=== PATIENT | male | born 1940 | race Caucasian/White ===

== ENCOUNTER 2020-08-08 16:07 | Emergency (ER) | payer MEDICARE, SELFPAY ==
[2020-08-08] VITALS (18 sets, daily range): BP systolic 106–152; BP diastolic 63–84; PULSE 65–75; RESP 16–18; TEMP 36.7; O2SAT 96–99; BMI 25.0
--- NOTE | 2020-08-08 16:13 | CT_ITS ---
PROCEDURE: CT HEAD/BRAIN WO CON CLINICAL INDICATION: head trauma Head injury with headache/pain, contusion, abrasion or hematoma COMPARISON: No exams were available for comparison TECHNIQUE: Axial images obtained. All CT scans at the facility use one or more dose reduction, viz: automated exposure control, ma/kV adjustment per patient size (including targeted exams where dose is matched to indication, i.e. head), or iterative reconstruction technique. FINDINGS: No midline shift, mass effect, intracranial hemorrhage, hydrocephalus, or extra-axial fluid collection is evident. There is generalized atrophy with hypoattenuation of the periventricular white matter consistent with microangiopathic changes. The calvarium has an unremarkable appearance. Bilateral mastoid effusions are noted. Mild mucosal thickening frontal sinus on the right IMPRESSION: 1. No acute intracranial findings. 2. Mastoid sinus disease Dictated by: Spencer French MD 08/08/2020 16:48 Spencer French MD in [place] 08/08/2020 16:48
--- NOTE | 2020-08-08 16:35 | [facility].EDAMS ---
ED Disposition Clinical Impression: Visual hallucinations Disposition: Home, Self-Care Condition on Discharge: Fair Referrals: Sherly Portillo [Primary Care Provider] - 3 days Time of Disposition: 18:37 - Critical Care Critical Care Time: No Attestation: On 08/08/20, the high probability of a clinically significant, sudden or life threatening deterioration of the following system(s) required my full and direct attention, intervention and personal management. The time I documented below is in addition to time spent performing reported procedures but includes the following listed in this critical care notation. Medical Decision Making - Medical Records Medical records reviewed: Yes: I reviewed the patient's medical records. - Emanuel Inquiry Pt receiving controlled substance: No Vital Signs: 08/08/20 16:07 08/08/20 16:25 08/08/20 16:44 Temperature 98.1 F Temperature Source Oral Pulse Rate 69 70 Pulse Rate [Left Radial] 75 Respiratory Rate 18 16 16 Blood Pressure Blood Pressure [Right Arm] 149/84 H Blood Pressure Mean Blood Pressure Mean [Right Arm] 105 Blood Pressure Source [Right Arm] Automatic Cuff Blood Pressure Position [Right Arm] Sitting 02 Sat by Pulse Oximetry 96 98 98 Oxygen Delivery Method Room Air 08/08/20 16:45 08/08/20 17:00 08/08/20 17:01 Temperature Temperature Source Pulse Rate 70 68 Pulse Rate [Left Radial] Respiratory Rate 17 16 18 Blood Pressure 106/63 L Blood Pressure [Right Arm] Blood Pressure Mean 77 Blood Pressure Mean [Right Arm] Blood Pressure Source [Right Arm] Blood Pressure Position [Right Arm] 02 Sat by Pulse Oximetry 98 99 Oxygen Delivery Method 08/08/20 17:15 08/08/20 17:30 08/08/20 17:45 Temperature Temperature Source Pulse Rate 66 69 68 Pulse Rate [Left Radial] Respiratory Rate 16 18 Blood Pressure 128/81 Blood Pressure [Right Arm] Blood Pressure Mean 90 Blood Pressure Mean [Right Arm] Blood Pressure Source [Right Arm] Blood Pressure Position [Right Arm] 02 Sat by Pulse Oximetry 97 98 98 Oxygen Delivery Method 08/08/20 17:59 08/08/20 18:00 08/08/20 18:01 Temperature Temperature Source Pulse Rate 70 68 Pulse Rate [Left Radial] Respiratory Rate Blood Pressure 141/72 H Blood Pressure [Right Arm] Blood Pressure Mean 93 Blood Pressure Mean [Right Arm] Blood Pressure Source [Right Arm] Blood Pressure Position [Right Arm] 02 Sat by Pulse Oximetry 98 98 Oxygen Delivery Method 08/08/20 18:15 08/08/20 18:30 Temperature Temperature Source Pulse Rate 66 66 Pulse Rate [Left Radial] Respiratory Rate Blood Pressure 145/77 H Blood Pressure [Right Arm] Blood Pressure Mean 99 Blood Pressure Mean [Right Arm] Blood Pressure Source [Right Arm] Blood Pressure Position [Right Arm] 02 Sat by Pulse Oximetry 98 98 Oxygen Delivery Method - Lab Data Lab results reviewed: Yes: I reviewed the patient's lab results. Lab Results 08/08/20 17:00: WBC 7.3, RBC 4.19 L, Hgb 13.0 L, Hct 40.2 L, MCV 96.0 H, MCH 31.0, MCHC 32.3, RDW 14.1, Plt Count 159, MPV 7.9, Neut % (Auto) 78.5, Lymph % (Auto) 13.8, [place] % (Auto) 6.4, Eos % (Auto) 0.8, Baso % (Auto) 0.5, Neut # (Auto) 5.7, Lymph # (Auto) 1.0, [place] # (Auto) 0.5, Eos # (Auto) 0.1, Baso # (Auto) 0.0 08/08/20 17:00: Sodium 142, Potassium 4.2, Chloride 107, Carbon Dioxide 29, Anion Gap 10.2, BUN 21 H, Creatinine 1.30 H, Estimated Creat Clear 46, Estimated GFR 53 L, Est GFR ( Amer) 64, Glucose 116 H, Calcium 9.4, Total Bilirubin 0.6, AST 26, ALT 16, Alkaline Phosphatase 57, Troponin I < 0.01, Total Protein 6.7, Albumin 3.9, Globulin 2.8, Albumin/Globulin Ratio 1.4 08/08/20 17:39: Urine Color Yellow, Urine Appearance Clear, Urine pH 6.5, Ur Specific [place] 1.025, Urine Protein Negative, Urine Glucose (UA) Negative, Urine Ketones Negative, Urine Blood Negative, Urine Nitrate Negative, Urine
[2020-08-08 17:09] LABS: Basophils % 0.5 % (0.1-2.0); Eosinophils # 0.1 K/mm3 (0.0-0.4); Eosinophils % 0.8 % (0.1-12.0); Hematocrit 40.2 % (42.0-52.0); Lymphocytes % 13.8 % (10-50); Mean Corpuscular HGB Conc 32.3 g/dL (31.8-35.4); Mean Platelet Volume 7.9 fl (7.4-10.4); Monocytes # 0.5 K/mm3 (0.1-1.0); Monocytes % 6.4 % (1.7-9.3); Neutrophils # 5.7 K/mm3 (1.8-7.8); Neutrophils % 78.5 % (37.0-80.0); Platelet Count 159 K/mm3 (142-424); Red Blood Count 4.19 M/mm3 (4.60-6.20); Red Cell Distribution Width 14.1 % (11.5-17.5); White Blood Count 7.3 K/mm3 (4.8-10.8)
[2020-08-08 17:15] LABS: Chloride 107 mmol/L (98-107)
[2020-08-08 17:16] LABS: Potassium 4.2 mmoL/L (3.5-5.1); Sodium 142 mmol/L (136-145)
[2020-08-08 17:18] LABS: Alanine Aminotransferase 16 U/L (12-78); Alkaline Phosphatase 57 U/L (38-126); Aspartate Amino Transferase 26 U/L (17-59); Bilirubin,Total 0.6 mg/dl (0.2-1.3); Blood Urea Nitrogen 21 mg/dl (9-20); Creatinine Clearance Estimated 46 mL/min (50-200); Estimated Glomerular Filt Rate 53 ml/min (>60); GFR (African American) 64 ML/MIN (>60)
[2020-08-08 17:19] LABS: Albumin Level 3.9 g/dl (3.5-5.0); Albumin/Globulin Ratio 1.4 (1.1-1.8); Anion Gap 10.2 mEq/L (5-15); Calcium 9.4 mg/dl (8.4-10.2); Carbon Dioxide 29 mmol/L (22.0-30.0); Globulin 2.8 g/dL (1.3-3.2); Glucose 116 mg/dl (74-100); Total Protein,Serum 6.7 g/dl (6.3-8.2)
[2020-08-08 17:31] LABS: Troponin I < 0.01 ng/ml (0.00-0.034)
[2020-08-08 17:43] LABS: Microscopic, Urine URINE MICROSCOPIC (MICROSCOPIC)
[2020-08-08 17:45] LABS: Appearance,Urine CLEAR (Clear); Bilirubin,Urine Negative (Negative); Blood, Urine Negative (Negative); Color,Urine YELLOW (Yellow); Glucose,Urine (UA) Negative (Negative); Ketones,Urine Negative (Negative); Leukocyte Esterase,Urine Negative (Negative); Nitrate,Urine Negative (Negative); PH,Urine 6.5 (5.0-8.5); Protein,Urine Negative (Negative); Specific Gravity, Urine 1.025 (1.005-1.030)
[2020-08-08 17:54] LABS: Amorphous Sediment,Urine 1+ /lpf; Bacteria,Urine 2+ /lpf; Fine Granular Casts,Urine Occasional #/lpf (0); Hyaline Casts,Urine Occasional #/lpf (0); Mucus,Urine 3+ /lpf; Squamous Epithelial Cell,Urine Occasional #/hpf (0-5); WBC,Urine Occasional #/hpf (0-3)
== END 2020-08-08 19:25 | disposition home or self-care (01) ==
PROVIDERS: Emergency Provider Family Medicine; PCP Family Medicine
DX: R44.1 Visual hallucinations (principal); Z79.899 Other long term (current) drug therapy
CPT/HCPCS: 70450; 80053; 81001; 84484; 85025; 87086; 87088; 87186; 99283

== ENCOUNTER → 2020-09-15 11:54 | Outpatient (CLI) | payer MEDICARE, SELFPAY | LOC: SL 11:57 | PROVIDERS: PCP Family Medicine; Visit Provider Family Medicine | DX: G47.30 Sleep apnea, unspecified (principal); R06.83 Snoring; G47.10 Hypersomnia, unspecified; R41.3 Other amnesia; Z87.891 Personal history of nicotine dependence | CPT/HCPCS: G0399 ==